=== PATIENT | male | born 1990 | race African-American/Black ===

== ENCOUNTER 2021-10-03 21:14 | Emergency (ER) | payer MEDICARE, MEDICAID ==
[~2021-10-03] VITALS: Ht 185.4 cm; Wt 113.0 kg
[2021-10-03] MEDS ORDERED: ZIPRASIDONE MESYLATE 20MG/VIAL IM STA (21:46)
[2021-10-03 22:41] LABS: BASOPHILS % 0.5 % (0.0-2.0); EOSINOPHILS % 1.2 % (0.0-5.0); HEMATOCRIT. 39.4 % (42.0-52.0); HEMOGLOBIN. 13.1 g/dL (14.0-18.0); LYMPHOCYTES % 30.6 % (20.0-50.0); MEAN CORPUSCULAR HEMOGLOBIN 30.1 pg (28.0-32.0); MEAN CORPUSCULAR VOLUME 90.6 fL (80.0-94.0); MEAN PLATELET VOLUME 7.4 fl (7.4-10.4); MONOCYTES % 8.1 % (2.0-8.0); NEUTROPHILS % 59.6 % (40.0-76.0); PLATELET 229 x1000/uL (130-400); RED BLOOD CELL COUNT 4.35 mill/uL (4.7-6.1); RED CELL DISTRIBUTION WIDTH 14.4 % (11.6-14.6)
[2021-10-03 22:49] LABS: CHLORIDE 111 mEq/L (98-107)
[2021-10-03 22:56] LABS: CREATINE KINASE 331 IU/L (39-308); ETHANOL BLOOD < 10 mg/dL
[2021-10-04 02:28] LABS: CLARITY URINE CLEAR (CLEAR); COLOR URINE YELLOW (YELLOW); KETONES URINE NEGATIVE (NEGATIVE); LEUKOCYTE ESTERASE URINE NEGATIVE (NEGATIVE); NITRITE URINE NEGATIVE (NEGATIVE); OCCULT BLOOD URINE NEGATIVE (NEGATIVE); PH URINE 5.5 (4.5-8.0); PROTEIN URINE NEGATIVE (NEGATIVE); SPECIFIC GRAVITY URINE 1.007 (1.005-1.030); UROBILINOGEN URINE 0.2 E.U./dL (0.2-1.0)
[2021-10-04 03:54] LABS: *AMPHETAMINES SCREEN URINE PRESUMTIVE POSITIVE (NEGATIVE); *BARBITURATES SCREEN URINE NEGATIVE (NEGATIVE); *BENZODIAZEPINES SCREEN URINE NEGATIVE (NEGATIVE); *COCAINE SCREEN URINE NEGATIVE (NEGATIVE); CANNABINOID URINE SCREEN PRESUMTIVE POSITIVE (NEGATIVE); METHADONE URINE SCREEN NEGATIVE (NEGATIVE); OPIATES URINE SCREEN NEGATIVE (NEGATIVE); PHENCYCLIDINE URINE SCREEN NEGATIVE (NEGATIVE)
[2021-10-04] MEDS ORDERED: HALOPERIDOL LACTATE 5MG/ML VIAL IM ONE (06:00)
[2021-10-04] MEDS ORDERED: MIDAZOLAM HCL 2 MG/2 ML VIAL IM ONE (06:00)
[2021-10-04 06:33] VITALS: BP 132/80
== END 2021-10-04 12:50 | disposition home or self-care (01) ==
LOC: ER 21:14
DX: F79 Unspecified intellectual disabilities (principal); Z20.822 Contact with and (suspected) exposure to COVID-19
CPT/HCPCS: 36415; 80053; 80305; 80320; 81003; 82550; 85025; 96372; 99285; C9803; J1630; J2250; J3486; U0003; U0005; G0480

== ENCOUNTER 2023-12-20 11:19 | Emergency (ER) | payer MEDICARE, MEDICAID ==
[~2023-12-20] VITALS: Ht 182.9 cm; Wt 80.0 kg
[2023-12-20 11:24] VITALS: BP 118/74; PULSE 82; RESP 16; TEMP 98.1; O2SAT 99
== END 2023-12-20 20:09 | disposition left against medical advice (07) ==
LOC: ER 11:19
DX: Z00.00 Encounter for general adult medical examination without abnormal findings (principal)
CPT/HCPCS: 99283